=== PATIENT | female | born 1935 | race Hispanic/Latino ===

== ENCOUNTER 2022-08-24 10:03 | Emergency (ER) | payer MEDICARE ==
[~2022-08-24] VITALS: Ht 152.4 cm; Wt 40.4 kg
[~2022-08-24 10:03] MED LIST: ADAL40PE SQ; CALC1TAB3 PO; DENO60DI SQ; FOLI1TAB15 PO; LOSA50TA64 PO; PRED5TAB PO; TRAM-355 PO; VITAMIN B 12 PO
[2022-08-24] MEDS ORDERED: MORPHINE 2 MG SYG IM ONE (12:30)
[2022-08-24 12:41] LABS: BASOPHILS % (AUTO) 0.6 % (0.0-5.0); EOSINOPHILS % (AUTO) 3.7 % (0.0-8.0); MEAN CORPUSCULAR HEMOGLOBIN 32.3 pg (27.0-33.0); MEAN CORPUSCULAR HGB CONC 33.9 g/dL (32.0-36.0); NEUTROPHILS % (AUTO) 63.5 % (40.0-77.0); PLATELET COUNT (AUTO) 140 K/uL (130-400); RED CELL DISTRIBUTION WIDTH 13.2 % (11.0-15.5); WHITE BLOOD COUNT (AUTO) 4.9 K/uL (4.8-10.8)
[2022-08-24 12:54] LABS: CARBON DIOXIDE 31 mmol/L (21-32); CHLORIDE 101 mmol/L (101-111); CREATININE 0.7 mg/dL (0.5-1.5); GLOMERULAR FILTR. RATE CALC 84 mL/min (>60); GLUCOSE,RANDOM 78 mg/dL (70-105); POTASSIUM 3.8 mmol/L (3.5-5.1); SODIUM SERUM 138 mmol/L (136-145); UREA NITROGEN, BLOOD 15 mg/dL (7-18)
[2022-08-24 12:58] LABS: ALANINE AMINOTRANSFERASE 11 U/L (12-78); ALBUMIN 3.4 g/dL (3.5-5.0); ASPARTATE AMINOTRANSFERASE 29 U/L (10-37); TOTAL PROTEIN, SERUM 8.2 g/dL (6.0-8.3)
[2022-08-24 13:00] LABS: CRP QUANTITATIVE < 2.00 mg/L (0.00-9.0)
[2022-08-24 14:01] VITALS: BP 164/61
== END 2022-08-24 14:02 | disposition home or self-care (01) ==
LOC: EDH 10:03
DX: M79.672 Pain in left foot (principal); R20.0 Anesthesia of skin; I10 Essential (primary) hypertension; M81.0 Age-related osteoporosis without current pathological fracture; Z90.49 Acquired absence of other specified parts of digestive tract; Z98.890 Other specified postprocedural states; Z79.899 Other long term (current) drug therapy
CPT/HCPCS: 36415; 73630; 80053; 85025; 86140; 96372